=== PATIENT | male | born 1965 ===

== ENCOUNTER 2023-12-07 10:21 | Outpatient (AMB) | payer OTHER, SELFPAY ==
--- NOTE | 2023-12-07 10:31 | MHC.OFFWIV ---
Intake Vital Signs 12/07/23 10:34 Height 5 ft 6 in Weight 221 lb 4 oz BMI 35.7 BP 116/78 Blood Pressure Location Lt brachial Position Sitting Pulse 78 Pulse Source Pulse Oximeter Temp 98.3 F Temp Source Oral Pulse Oximetry (%) 99 Oxygen Delivery Method Room Air Intake Visit Reasons: Rash on legs Intake Note: Rash on legs and arms. Pain back of left ankle Patient Tobacco Use Status: Never used Tobacco Allergies No Known Allergies Allergy (Verified 12/07/23 10:38) Medication List - Last Reconciled 12/07/23 by Ariadna Gregory CNP No Known Home Meds Do you need a note to return to daycare/school/sports/work: No HPI HPI Comments History of Present Illness Details 58-year-old male presents with complaints of very itchy rash to his arms and legs which has been present for the past 2 months. He notes that the rash has been recurring he rarely for the past 5-8 years, lasting approximately 3-4 months. She that he does [employer] for work and recalls walking on grass before the onset of his current rash. He has been using an anti-itch cream with some relief. He believes the rash is an allergic reaction. He denies dyspnea or constitutional symptoms. [facility] Social History Patient Tobacco Use Status: Never used Tobacco Review of Systems Const Details: Const Denies chills, Denies fatigue, Denies fever(s), Denies headache(s) and Denies weakness ENT Denies change in vision, Denies dizziness, Denies headache(s), Denies hearing loss, Denies nasal congestion, Denies sinus pain, Denies sinus pressure and Denies sore throat Resp Denies cough, Denies dyspnea, Denies wheezing and Denies other (shortness of breath) Cardio Denies chest pain, Denies lightheadedness, Denies dyspnea and Denies other (palpitations) Neuro Denies dizziness, Denies headache(s), Denies numbness, Denies tingling and Denies weakness Skin Reports as per HPI Psych Denies anxiety, Denies depression, Denies memory?loss Endo Denies fatigue Aller/Immun Denies wheezing Physical Exam Vital Signs: Last Vital Signs Temp 98.3 F 12/07/23 10:34 Pulse 78 12/07/23 10:34 BP 116/78 12/07/23 10:34 Pulse Ox 99 12/07/23 10:34 Oxygen Delivery Method Room Air 12/07/23 10:34 BMI result Body Mass Index 35.7 Const Other: Const General: well developed; No acute distress Nutritional Appearance: well nourished Orientation/consciousness: patient oriented x3 HEENT Head: Yes normocephalic and Yes atraumatic Eyes General: appearance normal, both eyes and all related structures Pupils: Equal, round and reactive pupils present EOM: EOMs intact bilaterally Resp Effort & Inspection: normal respiratory effort Auscultation: clear to auscultation bilaterally Cardio Rate: regular rate Rhythm: regular rhythm Heart sounds: S1 normal heart sound present, S2 normal heart sound present, no gallops, no murmurs and no rubs Bruits: no abdominal aortic bruits and no carotid bruits Skin General: warm and dry. Normal skin color. Normal skin turgor Rash: Widespread vesicular rash on red base noted to his lower legs (below his knees to ankles); some rash have crust over. Few vesicular rash on red base noted to his forearms. No streaking Trauma: no lacerations or abrasions Wounds: no wounds Nails: normal Neuro General: patient oriented x3 and gait normal, no focal neuro deficit Cranial nerves: Yes Equal, round and reactive pupils present Psych Affect: normal affect Assessment & Plan Assessment & Plan (1) Dermatitis due to plants, including poison anderson, sumac, and oak: Code(s): L25.5 - Unspecified contact dermatitis due to plants, except food Plan: Widespread vesicular rash on red base noted to his lower legs (below his knees to ankles); some rash have crust over. Few vesicular rash on red base noted to his forearms. No streaking Prednisone taper ordered. Advised to take as prescribed May applied hydrocortisone cream twice daily if signs and symptoms does not resolve following treatment with prednisone Advised to avoid walking and grass with short pants Follow-up with PCP for further evaluation and possible dermatology referral Verbalized understanding and agreed with the plan Medications: New prednisone 4 tabs daily for 4 days, 3 tabs daily for 2 days, 2 tabs daily for 2 days, 1 tab daily for 2 days PO daily; 28 tabs 0RF 10 days Coding Level of Care Code Est Pt Level 4 (69074) Diagnoses Dermatitis due to plants, including poison anderson, sumac, and oak L25.5
[2023-12-07 10:34] VITALS: BP 116/78; PULSE 78; TEMP 36.8; O2SAT 99; BMI 35.7
== END 2023-12-07 11:55 | disposition home or self-care (01) ==
PROVIDERS: Visit Provider Nurse Practitioner Family
DX: L25.5 Unspecified contact dermatitis due to plants, except food (principal)
CPT/HCPCS: 99214

== ENCOUNTER 2024-01-16 08:08 | Outpatient (AMB) | payer OTHER, SELFPAY ==
[2024-01-16 08:12] VITALS: BP 138/72; PULSE 88; O2SAT 98
--- NOTE | 2024-01-16 08:12 | AM.OFFWIN_ITS ---
Intake Vital Signs 01/16/24 08:12 Weight 228 lb BP 138/72 Blood Pressure Location Lt brachial Position Sitting Pulse 88 Pulse Source Pulse Oximeter Pulse Oximetry (%) 98 Oxygen Delivery Method Room Air Intake Visit Reasons: es/ posion anderson on arms/stomach/back Patient Tobacco Use Status: Never used Tobacco Allergies No Known Allergies Allergy (Verified 01/16/24 08:14) Medication List - Last Reconciled 01/16/24 by Sara Payne, ART- HPI HPI Comments History of Present Illness Details 58-year-old male here today with chief c omplaints of a poison anderson. He reports that he was trimming bushes on Sunday, shortly after he developed a rash on bilateral arms that was itchy and weeping. The rash then extended to his left axilla and right abdomen. He has been treating with [id number] salve that has helped some. However the rash continues. He otherwise denies any systemic symptoms. Upon chart review it looks like he was prescribed a prednisone taper at the end of November. Patient reports that it was for a similar rash after doing yd work that was on his legs that resolve completely after the prednisone taper. Otherwise he does report seasonal allergies, does not take any antihistamine. Exam Awake alert oriented, no acute distress Speaking in full sentences Rash consistent with allergic dermatitis to bilateral arms, left axilla, right lower quadrant, without signs of infections, with secondary excoriations. Plan Prednisone taper, daily Zyrtec, okay to continue to use topical salve, returned to office education provided. This note is constructed using voice recognition software. While every effort has been made to ensure accuracy in sugar coating hand, still errors may have been included Sometimes, these errors may affect the content or meaning of the given sentence . REPLACED BY [facility] Social History Patient Tobacco Use Status: Never used Tobacco Assessment & Plan Assessment & Plan (1) Dermatitis due to plants, including poison anderson, sumac, and oak: Code(s): L25.5 - Unspecified contact dermatitis due to plants, except food Plan: . Medications: New cetirizine (All Day Allergy (cetirizine)) 10 mg PO DAILY 30 tabs 0RF prednisone 5 tabs x 2 days, 4 tabs x 2 days, 3 tabs x 2 days, 2 tabs x 2 days, 1 tab x 2 days and then STOP. 10 mg PO DIRECTED 10 days 30 tabs 0RF Patient Instructions: Advised to take the medication daily with food. If new lesions crop up while on the taper advised to return to the office as we may need to hold the taper and/or extend the taper to prevent recurrence. Advised to cover the areas to pr event spread using something like a Tegaderm. Wash linen to also help prevent spread. Continue to use the [id number] skin scrubs to help protect the rest of your skin. Do your best to avoid contact. Coding Level of Care Code Est Pt Level 3 (65222) Diagnoses Dermatitis due to plants, including poison anderson, sumac, and oak L25.5
== END 2024-01-16 08:20 | disposition home or self-care (01) ==
PROVIDERS: Visit Provider Nurse Practitioner Family
DX: L25.5 Unspecified contact dermatitis due to plants, except food (principal)
CPT/HCPCS: 99213